=== PATIENT | female | born 1975 | race Caucasian/White ===

== ENCOUNTER → 2017-07-14 | Outpatient (CLI) | payer OTHER ==
--- NOTE | 2017-07-15 11:37 | RAD ---
DATE: 07/14/2017 EXAM: MAMMO GUANACO SCREENING BILATERAL HISTORY: Routine screening COMPARISON: Baseline study This study was interpreted with the benefit of Computerized Aided Detection (CAD). The breast parenchyma is heterogeneously dense, which could reduce sensitivity of mammography. Breast parenchyma level C. FINDINGS: 2-D and 3-D tomosynthesis imaging was performed in CC and MLO projections. No breast mass is identified. No suspicious microcalcifications are seen. IMPRESSION: There is no mammographic evidence of malignancy in either breast. BI-RADS CATEGORY: 1 NEGATIVE RECOMMENDED FOLLOW-UP: 12M 12 MONTH FOLLOW-UP PQRS compliance statement: Patient information was entered into a reminder system with a target due date for the next mammogram. Mammography is a sensitive method for finding small breast cancers, but it does not detect them all and is not a substitute for careful clinical examination. A negative mammogram does not negate a clinically suspicious finding and should not result in delay in biopsying a clinically suspicious abnormality. "Our facility is accredited by the [employer] Mammography [employer]."
== END | disposition home or self-care (01) ==
LOC: MAMMO 14:22
PROVIDERS: ATTEND Nurse Practitioner Family
DX: Z12.31 Encounter for screening mammogram for malignant neoplasm of breast (principal)
CPT/HCPCS: 77063; 77067

== ENCOUNTER → 2018-01-30 | Outpatient (CLI) | payer OTHER ==
--- NOTE | 2018-01-30 09:16 | RAD ---
EXAM: Left ankle, 2 views. HISTORY: Pain. COMPARISON: None. FINDINGS: 2 views left ankle are obtained. There is no fracture, dislocation or subluxation. The ankle mortise is intact. There is no osteochondral lesion. There is an incidental growth arrest line within the distal tibial diaphysis. IMPRESSION: No acute osseous finding. Electronically signed by: Abigail Montanez MD (01/30/2018 9:13 AM) [id number]
== END | disposition home or self-care (01) ==
LOC: PMG 08:50
PROVIDERS: ATTEND Physician Assistant Medical
DX: M25.572 Pain in left ankle and joints of left foot (principal)
CPT/HCPCS: 73600

== ENCOUNTER → 2019-07-02 | Outpatient (CLI) | payer OTHER ==
--- NOTE | 2019-07-04 17:30 | RAD ---
BILATERAL SCREENING MAMMOGRAM, 3-D History: Routine screening. Comparison: 07/14/2017 screening mammographic exam. Technique: MLO and CC digital tomosynthesis (3D) images obtained. Radiologist reviewed these images on dedicated workstation. Implant displacement views bilaterally were also obtained. Findings: Breast Tissue Density C : The breasts are heterogeneously dense, which may obscure small masses. There are no dominant masses, suspicious microcalcifications, or architectural distortion. Implant contours are unremarkable. There is an asymmetry at the inner aspect of the left breast on the implant displacement view approximately 2.5 cm deep from the nipple. This may represent summation of breast parenchyma. Corresponding finding is not identified on the CC projection obtained without implant displacement. IMPRESSION: Spot compression imaging of the left inner breast in the CC implant displaced projections recommended. Ultrasound at the 9:00 region of the left breast may be needed. BI-RADS Category 0: Incomplete: Need additional imaging evaluation. The images were reviewed with computer-aided detection. Patient information is entered into reminder system with a target due date for the next screening mammogram. Mammography is the most sensitive method for finding small breast cancers, but it does not detect them all and is not a substitute for careful clinical examination. A negative mammogram does not negate a clinically suspicious finding and should not result in delay in biopsying a clinically suspicious abnormality. "Our facility is accredited by the [employer] Mammography [employer]." Electronically signed by: Alex Barry MD (07/04/2019 5:28 PM) [id number]
== END | disposition home or self-care (01) ==
LOC: MAMMO 10:48
PROVIDERS: ATTEND Physician Assistant Medical
DX: Z12.31 Encounter for screening mammogram for malignant neoplasm of breast (principal); N64.89 Other specified disorders of breast; Z96.89 Presence of other specified functional implants
CPT/HCPCS: 77063; 77067

== ENCOUNTER → 2019-07-16 | Outpatient (CLI) | payer OTHER ==
--- NOTE | 2019-07-16 13:59 | RAD ---
Limited left breast ultrasound. INDICATION: Screening recall for new medial left breast mass, recommended for additional imaging by ultrasound from diagnostic mammogram. COMPARISON: Screening mammograms of 07/14/2017 and 07/02/2019 and left digital diagnostic mammogram of 07/16/2019. TECHNIQUE: Grayscale and color Doppler imaging of the medial left breast in the area of mammographic concern was performed. FINDINGS: An oval circumscribed parallel orientation anechoic 5 mm mass with posterior acoustic enhancement is present consistent with a benign sonographic cyst at the 9:00 position 4 cm from the nipple. This correlates in size shape and position with the mammographic finding recalled from screening and seen on diagnostic mammography. These are benign features with no evidence of malignancy. Incidental breast implant also noted. IMPRESSION: Benign findings on targeted left breast ultrasound. No evidence of malignancy. Recommend return to routine screening next due in one year. BI-RADS Category 2 Benign
--- NOTE | 2019-07-16 14:07 | RAD ---
Left digital diagnostic mammogram. INDICATION: 43-year-old woman recalled from screening for asymmetry in the medial left breast. COMPARISON: 07/02/2019, 07/14/2017 TECHNIQUE: Spot CC compression views of the left breast were obtained with 2-D technique. FINDINGS: Heterogeneously dense breast parenchyma. The asymmetry recalled from screening on additional mammographic views represents a circumscribed oval isodense mass, partly obscured by the surrounding dense breast parenchyma. This needs additional imaging with targeted ultrasound of the medial left breast approximately 4 cm from the nipple. This will be performed and reported separately same day. IMPRESSION: Incomplete. Left breast needs additional imaging. Recommend targeted ultrasound of the medial left breast in further evaluation of a persistent oval mass in the medial left breast. This will be performed and reported separately the same day. Please see that report for additional details. BI-RADS Category 0: Incomplete. Left breast needs additional imaging. Recommend targeted medial left breast ultrasound. BI-RADS 0 -- incomplete assessment
== END | disposition home or self-care (01) ==
LOC: MAMMO 12:52
PROVIDERS: ATTEND Physician Assistant Medical
DX: R92.2 Inconclusive mammogram (principal); N64.89 Other specified disorders of breast
CPT/HCPCS: 76641; 77065

== ENCOUNTER 2020-10-31 16:45 | Emergency (ER) | payer OTHER ==
[~2020-10-31] VITALS: Ht 165.1 cm; Wt 64.0 kg
[2020-10-31 16:52] VITALS: BP 131/91
[2020-10-31] MEDS ORDERED: FLUORESCEIN 1MG EYE STRIP. OD ONE (17:30)
--- NOTE | 2020-10-31 17:42 | PHYS DOC ---
Past History Past Medical History: No Pertinent History Past Surgical History: No Surgical History Alcohol Use: None General Adult EDM: Chief Complaint: EYE PROBLEMS HPI: HPI: 44-year-old female presents with right eye pain. The patient was mixing up see and she swatted at a bug on her face and realized that she had some of the epoxy on the glove that touched above her eye. She initially had burning of the area above her eyebrow but realized that she was rinsing it off that she also had burning sensation of her upper eyelid. She was concerned she might have gotten some of the liquid on her eyelid as well as into her eye. She rinsed the area with water and done and then came to the emergency room. She still has a mild burning sensation of the upper eyelid. She does not believe that she feels like there is something in her eye. Review of Systems: Review of Systems: Constitutional: Denies fever or chills Eyes: Denies change in visual acuity HENT: Denies nasal congestion or sore throat Respiratory: Denies cough or shortness of breath Cardiovascular: Denies chest pain or edema GI: Denies abdominal pain, nausea, vomiting, bloody stools or diarrhea : Denies dysuria Musculoskeletal: Denies back pain or joint pain Integument: Chemical burn right periorbital area Neurologic: Denies headache, focal weakness or sensory changes Endocrine: Denies polyuria or polydipsia Lymphatic: Denies swollen glands Psychiatric: Denies depression or anxiety Current Medications: Current Meds: Current Medications Medications (Trade) Dose Ordered Sig/Kathy Start Time Stop Time Status Last Admin Dose Admin Fluorescein Sodium (Ful-Luisana 1mg) 1 strip 1X ONCE 10/31/20 17:30 10/31/20 17:36 DC Allergies: Allergies: Allergies Coded Allergies Type Severity Reaction Last Updated Verified Sulfa (Sulfonamide Antibiotics) Allergy Unknown 11/19/13 Yes codeine Allergy Unknown 11/19/13 Yes Physical Exam: PE: Constitutional: Well developed, well nourished, no acute distress, non-toxic appearance. [] HENT: Normocephalic, atraumatic, bilateral external ears normal, oropharynx moist, no oral exudates, nose normal. [] Eyes: PERRLA, EOMI, conjunctiva normal, no discharge. Right upper eyelid with superficial chemical burn. Other superficial burn above the right eye and eyebrow [] Neck: Normal range of motion, no tenderness, supple, no stridor. [] Cardiovascular: Heart rate regular rhythm, no murmur [] Lungs & Thorax: Bilateral breath sounds clear to auscultation [] Abdomen: Bowel sounds normal, soft, no tenderness, no masses, no pulsatile masses. [] Skin: Warm, dry, no erythema, no rash. [] Back: No tenderness, no CVA tenderness. [] Extremities: No tenderness, no cyanosis, no clubbing, ROM intact, no edema. [] Neurologic: Alert and oriented X 3, normal motor function, normal sensory function, no focal deficits noted. [] Psychologic: Affect normal, judgement normal, mood normal. [] Current Patient Data: Vital Signs: Vital Signs Date Time Temp Pulse Resp B/P (MAP) Pulse Ox O2 Delivery O2 Flow Rate FiO2 10/31/20 16:52 98.6 92 16 131/91 (104) 98 Room Air EKG: EKG: [] Radiology/Procedures: Radiology/Procedures: [] Heart Score: C/O Chest Pain: N/A Risk Factors: Risk Factors: DM, Current or recent (<one month) smoker, HTN, HLP, family history of CAD, obesity. Risk Scores: Score 0 - 3: 2.5% MACE over next 6 weeks - Discharge Home Score 4 - 6: 20.3% MACE over next 6 weeks - Admit for Clinical Observation Score 7 - 10: 72.7% MACE over next 6 weeks - Early Invasive Strategies Course & Med Decision Making: Course & Med Decision Making Pertinent Labs and Imaging studies reviewed. (See chart for details) The patient appears to have a mild superficial burn of the upper eyelid on the right as well as around that general part of her face. This could have the appearance because of how aggressively she wash the area where could be a mild superficial burn. I performed a fluorescein dye study with Nassar lamp of the eye. There was no significant uptake. No corneal abrasion or foreign body. I have advised supportive care with cool compresses and letting it heal. She is stable for discharge at this time. [] Dragon Disclaimer: Dragon Disclaimer: This electronic medical record was generated, in whole or in part, using a voice recognition dictation system. Departure Departure: Impression: Primary Impression: Chemical burn of face Qualified Codes: T20.40XA - Corrosion of unspecified degree of head, face, and neck, unspecified site, initial encounter Disposition: 01 HOME / SELF CARE / HOMELESS Condition: STABLE Referrals: MALENA SULLIVAN (PCP) Patient Instructions: Chemical Burn, [id number] SARAI MONTEMAYOR DO Oct 31, 2020 17:42
== END 2020-10-31 18:11 | disposition home or self-care (01) ==
LOC: ER 16:45
DX: T26.51XA Corrosion of right eyelid and periocular area, initial encounter (principal); Z88.2 Allergy status to sulfonamides; Z88.5 Allergy status to narcotic agent; Y93.89 Activity, other specified; Y92.89 Other specified places as the place of occurrence of the external cause; Y99.8 Other external cause status
CPT/HCPCS: 99283-25

== ENCOUNTER → 2021-02-18 | Outpatient (CLI) | payer OTHER ==
--- NOTE | 2021-02-18 16:13 | RAD ---
EXAM: Bilateral digital screening mammogram with tomosynthesis. HISTORY: 45-year-old female presents for screening mammography. TECHNIQUE: Full-field digital craniocaudal and mediolateral oblique 2D and 3D tomosynthesis images of both breasts are obtained for evaluation. Computer aided detection was applied. COMPARISON: 07/02/2019 BREAST PARENCHYMAL DENSITY: Level D - Extremely dense. FINDINGS: There is no new suspicious mass, microcalcification or region of architectural distortion. There are unremarkable bilateral breast implants. IMPRESSION: BI-RADS Category 2: Benign finding(s). RECOMMENDATION: Annual mammography is recommended. If your mammogram demonstrates that you have dense breast tissue, which could hide abnormalities, and if you have other risk factors for breast cancer that have been identified, you might benefit from s upplemental screening tests that may be suggested by your ordering physician. Dense breast tissue, i n and of itself, is a relatively common condition. This information is not provided to cause undue c oncern, but rather to raise your awareness and to promote discussion with your physician regarding th e presence of other risk factors, in addition to dense breast tissue. A report of your mammography re sults will be sent to you and your physician. You should contact your physician if you have any ques tions or concerns regarding this report. Mammography is a sensitive method for finding small breast cancers, but it does not detect them all a nd is not a substitute for careful clinical examination. A negative mammogram does not negate a clin ically suspicious finding and should not result in delay in biopsying a clinically suspicious abnorma lity. PQRS compliance statement - Patient information was entered into a reminder system with a target due date for the next mammogram. "Our facility is accredited by the [employer] Mammography Program." Electronically signed by: Abigail Montanez MD (02/18/2021 4:10 PM) [id number]
== END ==
LOC: MAMMO 15:09
PROVIDERS: ATTEND Physician Assistant Medical
DX: Z12.31 Encounter for screening mammogram for malignant neoplasm of breast (principal)
CPT/HCPCS: 77063; 77067